=== PATIENT | male | born 1990 | race Two or more races ===

== ENCOUNTER 2021-08-30 14:49 | Emergency (ER) | payer SELFPAY ==
[~2021-08-30] VITALS: Ht 170.2 cm; Wt 72.6 kg
[2021-08-30] MEDS ORDERED: METOCLOPRAMIDE HCL 5MG/ml INJ 2ml VIAL IV ONE (15:45)
[2021-08-30] MEDS ORDERED: HYDROmorphone HCL 2 MG/ML VL IV ONE (15:45)
[2021-08-30] MEDS ORDERED: SODIUM CHLORIDE 0.9% 1,000 ML IV ONE (15:45)
[2021-08-30 16:10] LABS: Basophils # (auto) 0.1 10 ^3/uL (0-0.2); Eosinophils # (auto) 0.1 10 ^3/uL (0-0.8); Eosinophils % (auto) 0.5 % (0.0-7.0); Monocytes # (auto) 0.6 10 ^3/uL (0-1.3)
[2021-08-30 16:11] LABS: Basophils % (auto) 0.6 % (0.0-2.0); Hematocrit 53.9 % (41.0-53.0); Hemoglobin 18.4 g/dL (13.5-17.5); Lymphocytes # (auto) 1.6 10 ^3/uL (0.4-5.4); Lymphocytes % (auto) 14.4 % (10.0-50.0); Mean Corpuscular Hemoglobin 32.2 pg (28.0-32.0); Mean Corpuscular Hgb Conc. 34.1 g/dL (32.0-36.0); Mean Corpuscular Volume 94.7 fL (80.0-100.0); Monocytes % (auto) 5.4 % (0.0-12.0); Neutrophils # (auto) 8.7 10 ^3/uL (1.6-8.6); Neutrophils % (auto) 79.1 % (37.0-80.0); Nucleated Red Blood Cells % 0.1 %; Red Cell Distribution Width 13.3 % (11.8-14.3)
[2021-08-30] MEDS ORDERED: ETOMIDATE (2MG/ML) 20ML VIAL IV ONE ×2 (16:21→16:30)
[2021-08-30] MEDS ORDERED: MIDAZOLAM HCL 5 MG/ML-1ML VIAL ONE (16:21)
[2021-08-30] MEDS ORDERED: MIDAZOLAM HCL 5 MG/ML-1ML VIAL IV ONE (16:30)
[2021-08-30 16:34] LABS: Albumin 3.9 g/dL (3.4-5.0); BUN/Creatinine Ratio 8.9; Calcium 8.6 mg/dL (8.5-10.1); Magnesium 2.9 mg/dL (1.6-2.6); Potassium 4.2 mmol/L (3.5-5.1)
[2021-08-30 16:41] LABS: Bilirubin, Total 0.8 mg/dL (0.2-1.0); Total Protein 7.6 g/dL (6.4-8.2)
[2021-08-30 19:30] VITALS: BP 128/79
== END 2021-08-31 02:28 | disposition home or self-care (01) ==
LOC: ER 14:49
DX: S53.125A Posterior dislocation of left ulnohumeral joint, initial encounter (principal); V86.56XA Driver of dirt bike or motor/cross bike injured in nontraffic accident, initial encounter; Y93.89 Activity, other specified; Y92.410 Unspecified street and highway as the place of occurrence of the external cause; Y99.8 Other external cause status
CPT/HCPCS: 24600; 36415; 73030; 73070; 73080; 80053; 83735; 85025; 96361; 96374; 96375; 99285; J1170; J2250; J2765; J7030